=== PATIENT | female | born 1955 | race Caucasian/White ===

== ENCOUNTER → 2023-11-19 19:03 | Outpatient (REF) | payer OTHER, SELFPAY | LOC: MRI 19:03 | PROVIDERS: ATTENDING PHYSICIAN Nurse Practitioner Adult Health | DX: R51.9 Headache, unspecified (principal) | CPT/HCPCS: 70553; A9575 ==

== ENCOUNTER → 2023-12-11 14:59 | Outpatient (REF) | payer OTHER, SELFPAY | LOC: HWRAD 14:59 | PROVIDERS: ATTENDING PHYSICIAN Nurse Practitioner Adult Health | DX: M79.641 Pain in right hand (principal) | CPT/HCPCS: 73130 ==

== ENCOUNTER → 2024-01-23 12:05 | Outpatient (REF) | payer OTHER, SELFPAY | LOC: HWRAD 12:05 | PROVIDERS: ATTENDING PHYSICIAN Internal Medicine Critical Care Medicine; FAMILY PHYSICIAN Nurse Practitioner Adult Health | DX: R93.89 Abnormal findings on diagnostic imaging of other specified body structures (principal); R91.1 Solitary pulmonary nodule | CPT/HCPCS: 71250 ==

== ENCOUNTER → 2024-03-27 07:59 | Outpatient (REF) | payer OTHER, SELFPAY | LOC: PAVMRI 07:59 | PROVIDERS: ATTENDING PHYSICIAN Physician Assistant; FAMILY PHYSICIAN Nurse Practitioner Adult Health | DX: M54.9 Dorsalgia, unspecified (principal); M54.14 Radiculopathy, thoracic region | CPT/HCPCS: 72146 ==

== ENCOUNTER → 2024-12-02 19:16 | Outpatient (REF) | payer OTHER, SELFPAY | LOC: RAD 19:16 | PROVIDERS: ATTENDING PHYSICIAN Family Medicine | DX: M79.89 Other specified soft tissue disorders (principal) | CPT/HCPCS: 93970 ==

== ENCOUNTER → 2025-01-24 08:00 | Outpatient (REF) | payer OTHER, SELFPAY | LOC: MRI 3T 08:00 | PROVIDERS: ATTENDING PHYSICIAN Physician Assistant Surgical; FAMILY PHYSICIAN Family Medicine | DX: M54.2 Cervicalgia (principal); M50.10 Cervical disc disorder with radiculopathy, unspecified cervical region; M54.12 Radiculopathy, cervical region | CPT/HCPCS: 72141 ==

== ENCOUNTER 2025-04-08 08:30 | Emergency (ER) | payer OTHER, SELFPAY ==
[2025-04-08 08:32] VITALS: BP 148/68
--- NOTE | 2025-04-08 08:54 | ED.GENMED ---
History of Present Illness
General
Chief Complaint: Abdominal Pain
Source: patient
Time Seen by Provider: 04/08/25 08:39
History of Present Illness
History of Present Illness:
69-year-old female with past medical history of GERD, hypothyroidism presenting to the emergency for evaluation of abdominal pain ongoing since the beginning of February, worse over the last 2 days, accompanied with nausea and mild vomiting described
to be nonbloody nonbilious. Pain described to be relatively constant, dull, burning sensation, nonradiating and without any relief using ocxo-ura-uscgihk Maalox and other antacids as well as omeprazole/Nexium. Patient saw her primary care provider
for this when symptoms initially started and then she also saw her GI physician, Dr. Savage, last week and has an endoscopy and colonoscopy scheduled but this is not until the end of May. Patient states she has never had symptoms like this in
the past. Denies any chest pain, shortness of breath, palpitations, cough, infectious symptoms/URI-like symptoms, urinary symptoms or bowel changes. Surgical history was noted for previous cholecystectomy. Social history was noncontributory.
Past History
Past History
ED Past Medical History: Fibromyalgia, GERD and Hyperthyroidism
ED Past Surgical History: Cholecystectomy, , Gynecological (Hysterectomy), Orthopedic (Total Knee replacement) and Other (carpal tunnel left hand, 'bones replaced with rods' 4th and 5th metacarpals due to arthritis (Dr. Mccarty).)
Social History
Tobacco: Former smoker
Alcohol: Occasional
Drug: None
Personal:
Living: with family
Employment: Employed
Family History
Family History: Other
Review of Systems
Review of Systems
All Other Systems: ROS reviewed and negative except as documented in HPI and ROS
Phy Exam
Physical Exam
Physical Exam:
GENERAL: Alert , in no apparent distress
EYE: clear conjunctiva b/l
HEAD: NCAT
ENT: o/p clr, mmm.
CARDIAC: Regular rate and rhythm .
LUNGS: Clear breath sounds bilaterally, no acute respiratory distress, no wheezes/rales/rhonchi
ABDOMEN: Soft, without focal tenderness, no r/g, no cvat
NEUROLOGICAL: Alert and oriented
SKIN: Warm and dry, skin intact.
MUSCULOSKELETAL: well perfused.
PSYCH: Normal and appropriate interaction.
Scores
Heart Failure Risk
Heart Failure Risk Score: Not Applicable
Heart Score for Chest Pain Patients
STEMI patient?: Not applicable
Withdrawal Assessment of Alcohol
Withdrawal Assessment Completed?: Not applicable
Course
Orders/Labs/Results
Orders:
Orders
04/08/25 08:53
Electrocardiogram (*1) Urgent
Reason for Study: Abdominal Pain
CT Abd/pelvis W Iv Cont Urgent
Comment:
Reason For Exam: epigastric abd pain, s/p choley
EKG- Treatment ONCE
04/08/25 08:54
Mag Hydrox/Al Hydrox/Simeth [Maalox] 30 ml Phenobarb/Hyoscy/Atropine/Scop [] 10 ml Viscous Lidocaine 2% [Xylocaine Viscous Cup] 10 ml PO NOW
04/08/25 09:03
Mag Hydrox/Al Hydrox/Simeth [Maalox] 30 ml .ROUTE .STK-MED ONE
Phenobarb/Hyoscy/Atropine/Scop [] 10 ml .ROUTE .STK-MED ONE
Viscous Lidocaine 2% [Xylocaine Viscous Cup] 15 ml .ROUTE .STK-MED ONE
04/08/25 09:15
Complete Blood Count/With Diff Urgent
Comprehensive Metabolic Panel Urgent
Lipase Urgent
Troponin I Urgent
Abnormal Lab Results
04/08/25
09:15
WBC 4.3 L 10^3/uL
(4.8-10.8)
RDW 14.6 H %
(11.5-14.5)
MPV 10.5 H fL
(7.4-10.4)
Monocytes % 9.6 H %
(1.7-9.3)
Chloride 110 H mmol/L
(98-107)
BUN 19 H mg/dl
(7-17)
Glucose 115 H mg/dl
(70-99)
04/08/25 09:15
04/08/25 09:15
Vital Signs
Initial and Last Documented VS:
Initial Vital Signs
Temp Pulse Resp BP Pulse Ox
98.6 F 86 16 148/68 98
04/08/25 08:32 04/08/25 08:32 04/08/25 08:32 04/08/25 08:32 04/08/25 08:32
Last Documented Vital Signs
Temp Pulse Resp BP Pulse Ox
98.6 F 86 20 148/68 98
04/08/25 08:32 04/08/25 08:32 04/08/25 10:00 04/08/25 08:32 04/08/25 08:59
MDM/Problems Addressed
Differential Diagnosis Includes:
GERD
Gastritis
Duodenitis
Hiatal Hernia
H. Pylori infection
Pancreatitis
UC/Crohn's
Atypical ACS
MDM/Problems Addressed:
69-year-old female presenting to the ER with approximately 2 months of epigastric abdominal pain, no relief with jrjs-srp-yhqnzqt measures as well as omeprazole. Symptoms unchanged today but gradually worsening, scheduled to undergo endoscopy but
not for another month and a half. Exam reassuring. Overall my clinical suspicion for any emergent pathology is low but given patient has not had any labs or imaging done for the symptoms we will check labs including troponin and EKG as well as a
CT scan of the abdomen and pelvis. Will trial a GI cocktail here for symptomatic relief
*Radiology
Radiology exam reviewed: radiology read reviewed
*Pulse Oximetry
SaO2: 98
Oxygen Mode of Delivery: Room air
Patient hypoxic: no
*EKG
Heart Rate: 68
Rate: normal
Rhythm: sinus
[place]: normal axis
Ischemia: no ischemia
*Critical Care Note
Total Time (30-74mins, 75-104mins- exclusive of procedures): Not Applicable
Data Reviewed
Review of Other/Old Records Reveals: Labs and Radiology Studies
Source: patient, records and family
Patient Management
Escalation/DeEscalation of care consider admission/obs:
Patient CT scan without any acute emergent pathologies identified. She notes that the GI cocktail did help with some of her symptoms. I did encourage the patient to follow-up with primary care as well as her GI team. Prescription for Carafate
sent to pharmacy. Continue the omeprazole as well.
ED Attending Note
-
Portions of this chart may have been created with voice recognition software.� Occasional wrong word or��sound alike� substitutions may have occurred due to the inherent limitations of voice recognition software.
Discharge Plan
Departure
Patient Disposition: Home (Routine Discharge)
Date of Disposition: 04/08/25
Time of Disposition: 10:50
Patient with high blood pressure during this ER visit?: Yes
Discharge Problem:
Abdominal pain
Instructions: Abdominal Pain
Prescriptions:
New
sucralfate [Carafate] 100 mg/mL suspension
10 ml PO QID Qty: 500 0RF
No Action
cyclobenzaprine 10 MG tablet
15 - 20 mg PO HS
Ca-D3-mag yb-aiyn-rbo-getachew-bor [Calcium 600-D3 Plus (mag-zinc)] 1 EACH tablet
1 ea PO HS
Patient Comments:
pt states does not take at home
acetaminophen [Tylenol Extra Strength] 500 MG tablet
1,000 mg PO HS
esomeprazole magnesium [Nexium 24HR] 20 MG tablet,delayed release (DR/EC)
20 mg PO DAILY
sulfamethoxazole-trimethoprim 1 TABLET tablet
1 tab PO BID Qty: 19 0RF
cefdinir 300 MG capsule
300 mg PO BID Qty: 20 0RF
meclizine 25 MG tablet
25 mg PO Q8HPRN PRN (Reason: Dizziness) Qty: 15 0RF
ondansetron 4 MG tablet,disintegrating
4 mg PO TIDPRN PRN (Reason: Nausea) Qty: 15 0RF
methylprednisolone [Medrol (Jorge)] 4 mg tablets,dose pack
See Rx Instructions .ROUTE .COMPLEX Qty: 21 0RF
Rx Instructions:
orally per package directions
Referrals:
Magdalena Carr CRNP [Family Provider, General]
Interventions
Interventions:
*Risk Screen - Suicide Last Done: 04/08/25 08:32
*General Assessment Last Done: 04/08/25 09:26
*Neglect/Abuse Screening Last Done: 04/08/25 08:32
*ED- Fall Risk Assessment Last Done: 04/08/25 09:26
*ED COVID-19 Vaccine History Last Done: 04/08/25 09:26
*ED Influenza Vaccine History Last Done: 04/08/25 09:26
*Nursing Disposition Last Done: 04/08/25 11:50
EX-Zstrmx-Dmchbqlock Assessment Last Done: 04/08/25 09:24
Discharge Date and Time
Discharge Date/Time: 04/08/25 11:59
Print Language: ROMANIAN
[2025-04-08] MEDS: MAALOX 50 PO (09:04)
[2025-04-08 09:25] VITALS: BMI 33.5
[2025-04-08 09:30] LABS: Hematocrit 42.9 % (37.0-47.0); Hemoglobin 14.3 g/dL (12.0-16.0); Mean Corp Hgb Conc. 33.3 g/dL (33.0-37.0); Mean Corpuscular Volume 88.3 fL (81.0-99.0); Nucleated Red Blood Cells % 0 %; Platelet Count 258 10^3/uL (130-400); Red Cell Dist. Width 14.6 % (11.5-14.5)
[2025-04-08 09:44] LABS: ALT (SGPT) 16 U/L (0-35); AST (SGOT) 21 U/L (14-36); Albumin 4.1 g/dl (3.5-5.0); Alkaline Phosphatase 71 U/L (38-126); Blood Urea Nitrogen 19 mg/dl (7-17); Calcium 9.4 mg/dl (8.4-10.2); Carbon Dioxide 22 mmol/L (22-30); Chloride 110 mmol/L (98-107); Estimated Creatinine Clearance 80 ml/min; Glucose 115 mg/dl (70-99); Lipase 99 U/L (23-300); Potassium 4.3 mmol/L (3.5-5.1); Sodium 139 mmol/L (135-145); Total Protein 6.7 g/dl (6.3-8.2); eGFR > 60.00
[2025-04-08 09:55] LABS: Troponin I < 0.012 ng/ml
== END 2025-04-08 11:59 | disposition home or self-care (01) ==
LOC: EMR 08:30
PROVIDERS: Physician Assistant Medical; EMERGENCY PHYSICIAN Emergency Medicine; FAMILY PHYSICIAN Nurse Practitioner Adult Health
DX: R10.13 Epigastric pain (principal); R03.0 Elevated blood-pressure reading, without diagnosis of hypertension; E03.9 Hypothyroidism, unspecified; K21.9 Gastro-esophageal reflux disease without esophagitis; M79.7 Fibromyalgia; Z87.891 Personal history of nicotine dependence; Z96.659 Presence of unspecified artificial knee joint
CPT/HCPCS: 99284; 74177; 80053; 83690; 84484; 85025; 93005; Q9967

== ENCOUNTER → 2025-05-25 08:59 | Outpatient (REF) | payer OTHER, SELFPAY | LOC: RAD 08:59 | PROVIDERS: ATTENDING PHYSICIAN Nurse Practitioner Adult Health | DX: K29.00 Acute gastritis without bleeding (principal); R10.13 Epigastric pain; R11.2 Nausea with vomiting, unspecified; R13.19 Other dysphagia | CPT/HCPCS: 74221 ==

== ENCOUNTER 2025-06-19 14:31 | Emergency (ER) | payer OTHER, SELFPAY ==
[2025-06-19 14:34] VITALS: BP 128/63
[2025-06-19 15:41] VITALS: BP 125/55
[2025-06-19 15:45] VITALS: BMI 33.1
[2025-06-19] MEDS: NSS 500 IV (15:59)
[2025-06-19 16:00] VITALS: BP 119/45
--- NOTE | 2025-06-19 16:47 | ED.GENMED ---
History of Present Illness
<Vivi Sawyer PA-C - Last Filed: 06/19/25 17:22>
General
Chief Complaint: Fever
Time Seen by Provider: 06/19/25 15:25
History of Present Illness
History of Present Illness:
69-year-old female who tested positive for the flu at urgent care yesterday presenting to the ER today for reported nausea and vomiting as well as fever at home. Intermittent shortness of breath. Denies taking any Tylenol or Motrin. Reports that
she has been nauseous all morning and has not eaten.
Past History
<Vivi Sawyer PA-C - Last Filed: 06/19/25 17:22>
Past History
ED Past Medical History: Fibromyalgia, GERD and Hyperthyroidism
ED Past Surgical History: Cholecystectomy, , Gynecological (Hysterectomy), Orthopedic (Total Knee replacement) and Other (carpal tunnel left hand, 'bones replaced with rods' 4th and 5th metacarpals due to arthritis (Dr. Mccarty).)
Social History
Tobacco: Former smoker
Alcohol: Occasional
Drug: None
Personal:
Living: with family
Employment: Employed
Family History
Family History: Other
Phy Exam
<Vivi Sawyer PA-C - Last Filed: 06/19/25 17:22>
General Physical Exam
General Presentation: well appearing and no apparent distress
General Skin: warm and dry
General Habitus: normal
General Mental: alert
General Hydration: appears well hydrated
ENT Exam
ENT Exam: EOMI, pharynx normal, neck supple and normocephalic
Eye Exam
Eye Exam: PERRL, cornea clear and conjunctiva normal
Cardiovascular Exam
Cardiovascular Exam: regular rate/rhythm, no edema, no murmur and normal peripheral pulses
Pulmonary Exam
Pulmonary Exam: lungs clear, no respiratory distress, no rales, no crackles, no rhonchi, no stridor, no wheezing and no cough
Gastrointestinal Exam
Gastrointestinal Exam: normal bowel sounds, non tender, soft, no organomegaly, no pulsatile mass and non distended
Neurological Exam
Neurological Exam: alert, oriented x3, no motor deficits and speech normal
Musculoskeletal Exam
Musculoskeletal Exam: full ROM and no edema
Skin Exam
Skin Exam: normal color, warm/dry, no rash and no petechia
Psychiatric Exam
Psychiatric Exam: normal mood/affect
Course
<Vivi Sawyer PA-C - Last Filed: 06/19/25 17:22>
Orders/Labs/Results
Orders:
Orders
06/19/25 14:37
EKG [Electrocardiogram (*1)] Urgent
Reason for Study: Chest Pain
06/19/25 14:38
EKG- Treatment ONCE
06/19/25 15:49
0.9% Sodium Chloride 500 ml [Nss] 500 ml IV BOLUS
CXR2 [CR Chest - 2 Views ] Urgent
Comment:
Reason For Exam: sob
06/19/25 16:46
Influenza A+B Rapid Molecular Urgent
VIVIANE Source: Nasal Swab
Specimen Description:
06/19/25 17:04
CBC/With Diff [Complete Blood Count/With Diff] Urgent
CMP [Comprehensive Metabolic Panel] Urgent
Abnormal Lab Results
06/19/25
17:04
MPV 10.8 H fL
(7.4-10.4)
Absolute Lymphs (auto) 0.3 L 10^3/uL
(1.2-3.4)
Neutrophils % 84.0 H %
(42.2-75.2)
Lymphocytes % 5.4 L %
(20.5-51.1)
Monocytes % 10.0 H %
(1.7-9.3)
06/19/25 17:04
Vital Signs
Initial and Last Documented VS:
Initial Vital Signs
Temp Pulse Resp BP Pulse Ox
99 F 93 16 128/63 94
06/19/25 14:34 06/19/25 14:34 06/19/25 14:34 06/19/25 14:34 06/19/25 14:34
Last Documented Vital Signs
Temp Pulse Resp BP Pulse Ox
99 F 80 22 119/45 93
06/19/25 14:34 06/19/25 15:44 06/19/25 15:44 06/19/25 16:00 06/19/25 16:48
<Ney Cunningham MD - Last Filed: 06/19/25 17:25>
Orders/Labs/Results
Orders:
Orders
06/19/25 14:37
EKG [Electrocardiogram (*1)] Urgent
Reason for Study: Chest Pain
06/19/25 14:38
EKG- Treatment ONCE
06/19/25 15:49
0.9% Sodium Chloride 500 ml [Nss] 500 ml IV BOLUS
CXR2 [CR Chest - 2 Views ] Urgent
Comment:
Reason For Exam: sob
06/19/25 16:46
Influenza A+B Rapid Molecular Urgent
VIVIANE Source: Nasal Swab
Specimen Description:
06/19/25 17:04
CBC/With Diff [Complete Blood Count/With Diff] Urgent
CMP [Comprehensive Metabolic Panel] Urgent
Abnormal Lab Results
06/19/25
17:04
MPV 10.8 H fL
(7.4-10.4)
Absolute Lymphs (auto) 0.3 L 10^3/uL
(1.2-3.4)
Neutrophils % 84.0 H %
(42.2-75.2)
Lymphocytes % 5.4 L %
(20.5-51.1)
Monocytes % 10.0 H %
(1.7-9.3)
06/19/25 17:04
Vital Signs
Initial and Last Documented VS:
Initial Vital Signs
Temp Pulse Resp BP Pulse Ox
99 F 93 16 128/63 94
06/19/25 14:34 06/19/25 14:34 06/19/25 14:34 06/19/25 14:34 06/19/25 14:34
Last Documented Vital Signs
Temp Pulse Resp BP Pulse Ox
99 F 80 22 119/45 93
06/19/25 14:34 06/19/25 15:44 06/19/25 15:44 06/19/25 16:00 06/19/25 16:48
<Vivi Sawyer PA-C - Last Filed: 06/19/25 17:22>
MDM/Problems Addressed
Differential Diagnosis Includes:
Chest x-ray obtained and shows no infiltrate. Discussed case with hospitalist patient reports she is unable to tolerate any p.o. pulse oximetry is between 90 and 93% on room air. Initially plan was for admission given her history and age. However
after hospitalist evaluation patient now reports that she is always nauseous and this is not new for her. In addition patient reports that fever this morning was actually only 98 degrees. Given this there is no indication for admission I will
discharge patient with supportive care measures for influenza discussed
<Vivi Sawyer PA-C - Last Filed: 06/19/25 17:22>
*Pulse Oximetry
SaO2: 93
Oxygen Mode of Delivery: Room air
Patient hypoxic: no
*Critical Care Note
Total Time (30-74mins, 75-104mins- exclusive of procedures): Not Applicable
ED Attending Note
<Vivi Sawyer PA-C - Last Filed: 06/19/25 17:22>
-
Portions of this chart may have been created with voice recognition software.� Occasional wrong word or��sound alike� substitutions may have occurred due to the inherent limitations of voice recognition software.
<Ney Cunningham MD - Last Filed: 06/19/25 17:25>
ED Attending Note
Patient seen and examined by attending physician: Yes
I performed the substantive portion of visit, reviewed & personally made and approve the management plan that is documented in note by myself or CITLALLI.: Yes
ED Attending Note:
I have seen and evaluated the patient with a [id number]-gd-mvda encounter. I have spoken to the [CITLALLI] and involved in the medical history, the physical exam, medical decision making.
Evaluation and management service: agree unless noted differently below.
Results interpretation: agree unless noted differently below.
69-year-old woman presenting to the emergency department with weakness and headache. She has a positive for the flu yesterday. Has been having intractable nausea vomiting as well as dehydrated. Has been unable to tolerate any p.o. for the past 24
hours. She does have a history of sepsis. Patient denies any chest pain difficulty breathing. No abdominal pain. Symptoms have improved slightly since arriving to the emergency department. My evaluation patient is resting comfortably. She does
have dry oral mucosa. Her abdomen is nondistended nontender. Will check blood work and symptom management. Will give fluids. Anticipate admission.
Given inability tolerate p.o. that patient described we did discuss with hospitalist for admission. When hospice arrived patient actually states that she has been able to tolerate p.o. and would prefer to be discharged home. Given that patient is
tolerating p.o. and otherwise feels well will discharge. Strict return precautions given.
Discharge Plan
Departure
Patient Disposition: Home (Routine Discharge)
Date of Disposition: 06/19/25
Time of Disposition: 16:44
Patient with high blood pressure during this ER visit?: No
Discharge Problem:
Influenza, Nausea & vomiting
Prescriptions:
No Action
sucralfate 1 gram tablet
1 g PO QID
famotidine 40 mg tablet
40 mg PO DAILY
pantoprazole 40 mg tablet,delayed release (DR/EC)
40 mg PO BID
azelastine 137 mcg (0.1 %) spray,non-aerosol
1 spray INTRANASAL HS
fluticasone furoate-vilanterol [Breo Ellipta] 100-25 mcg/dose blister with device
1 inh INHALATION DAILY
Voquezna 20 mg tablet
20 mg PO DAILY
acetaminophen 500 mg Tablet
1,000 mg PO HS
Activity Restrictions/Additional Instructions:
Supportive measures at home. Stay well-hydrated hydrated. May use mhxl-wbc-zqlmygs Motrin or Tylenol for any pain or fevers. Turn to the ER for any fevers over 100.4 that are not responding to Tylenol or Motrin.
Interventions
Interventions:
*Risk Screen - Suicide Last Done: 06/19/25 14:34
*General Assessment Last Done: 06/19/25 15:45
*Neglect/Abuse Screening Last Done: 06/19/25 14:34
*ED COVID-19 Vaccine History Last Done: 06/19/25 15:45
*ED Influenza Vaccine History Last Done: 06/19/25 15:45
[facility] Risk Assessment Tool Last Done: 06/19/25 15:49
ED- Neurological Assessment Last Done: 06/19/25 15:49
ED-Skin Assessment Last Done: 06/19/25 15:49
Discharge Date and Time
Print Language: DUTCH
--- NOTE | 2025-06-19 16:59 | HPS.HSE ---
Family Physician
-
Family Physician:
Chief Complaint
History of Present Illness
Past medical history fibromyalgia, GERD, hyperthyroidism, former smoker
Impression/plan:
OBS MedSurg
#Intractable nausea vomiting secondary to influenza A positive
#Hypoxic respiratory insufficiency likely secondary to influenza A
Influenza A positive at urgent care will repeat test
93% RA
- Check CMP, CBC
- Tylenol as needed fever
- Tamiflu
- IV NSS 1 L given in ER
CXR negative
GERD
IV Protonix 40 mg now and daily
Hypothyroidism
Fibromyalgia
Former smoker
DVT prophylaxis
Subcu Lovenox
Full code
Medical History
Allergies / Home Medications
Allergies reflects when Allergies were last updated in [employer].
Home Medications with original date entered in [employer]
Physical Exam
Vital Signs
Vital Signs
Temp Pulse Resp BP Pulse Ox
99 F 80 22 119/45 93
06/19/25 14:34 06/19/25 15:44 06/19/25 15:44 06/19/25 16:00 06/19/25 16:48
Impression/Plan
-
IMPRESSION:
PLAN:
--- NOTE | 2025-06-19 17:02 | EDRN ---
Attempted to call report. IMU RN to call back
[2025-06-19 17:16] LABS: Hematocrit 40.5 % (37.0-47.0); Hemoglobin 13.7 g/dL (12.0-16.0); Mean Corp Hgb Conc. 33.8 g/dL (33.0-37.0); Mean Corpuscular Volume 88.2 fL (81.0-99.0); Nucleated Red Blood Cells % 0 %; Platelet Count 199 10^3/uL (130-400); Red Cell Dist. Width 14.5 % (11.5-14.5)
[2025-06-19 17:30] LABS: ALT (SGPT) 18 U/L (0-35); AST (SGOT) 31 U/L (14-36); Albumin 4.1 g/dl (3.5-5.0); Alkaline Phosphatase 68 U/L (38-126); Blood Urea Nitrogen 15 mg/dl (7-17); Calcium 8.6 mg/dl (8.4-10.2); Carbon Dioxide 21 mmol/L (22-30); Chloride 103 mmol/L (98-107); Estimated Creatinine Clearance 80 ml/min; Glucose 99 mg/dl (70-99); Potassium 3.6 mmol/L (3.5-5.1); Sodium 134 mmol/L (135-145); Total Protein 6.8 g/dl (6.3-8.2); eGFR > 60.00
[2025-06-19 18:00] VITALS: BP 124/56
--- NOTE | 2025-06-19 18:13 | W.PN.UPDATE ---
Update Note
Progress Note Update
consulted by ER for poor PO intake in setting of influenza
Ms. Chey Elam is a 69 yo woman with hx fibromyalgia, GERD, hyperthyroidism who began to feel fatigued yesterday and tested positive for Influenza. Initial story was that patient couldn't tolerate oral intake.
Triage vitals stable. Labs essentially unremarkable. On exam she appears fatigued but non-toxic; lungs clear, abdomen benign, no LE swelling. On our interview patient denied nausea/vomiting. She has been drinking fluids all day. Based on this,
we discussed that if she tolerates eating in the ER she is OK for discharge with a prescription for Tamiflu.
== END 2025-06-19 18:14 | disposition home or self-care (01) ==
LOC: EMR 14:31
PROVIDERS: Clinical Nurse Specialist Family Health; EMERGENCY PHYSICIAN Student in an Organized Health Care Education/Training Program
DX: J10.1 Influenza due to other identified influenza virus with other respiratory manifestations (principal); R11.2 Nausea with vomiting, unspecified; E05.90 Thyrotoxicosis, unspecified without thyrotoxic crisis or storm; K21.9 Gastro-esophageal reflux disease without esophagitis; M79.7 Fibromyalgia; M19.90 Unspecified osteoarthritis, unspecified site; Z87.891 Personal history of nicotine dependence; Z96.659 Presence of unspecified artificial knee joint
CPT/HCPCS: 99284; 96360; 71046; 80053; 85025; 87502; 93005